=== PATIENT | male | born 1970 | race Caucasian/White ===

== ENCOUNTER → 2019-04-11 05:41 | Outpatient (CLI) | payer OTHER, SELFPAY ==
--- NOTE | 2019-04-11 | DI.MRI.S_ITS ---
PROCEDURE: MR KNEE RT WO CON INDICATIONS: Pain in unspecified knee TECHNIQUE: Noncontrast sagittal PD fast spin echo and T2 fast spin echo with fat saturation, sagittal 3-D FLASH with fat saturation; coronal T1 spin echo and PD fast spin echo with fat saturation, and axial PD fast spin echo with fat saturation through the knee. COMPARISON: None. FINDINGS: Image quality: Excellent. 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 Cruciate ligaments: The anterior and posterior cruciate ligaments appear intact. Medial structures: The medial collateral ligament appears intact. However there is a large amount of focal fluid collection seen deep to the superficial fibers and extending to the level of the pes anserinus tendons. This measures approximate 5.8 cm in cephalocaudad dimension and 1.5 x 4.1 cm on axial image 20 of series 5. Mild semimembranosus insertional tendinopathy and thickening. Visualized portions of the pes anserinus tendons appear intact. Lateral structures: The lateral collateral ligament, long and short heads of the biceps femoris tendon appear intact. The popliteus tendon appears normal; the popliteofibular ligament appears intact. The posterosuperior and anteroinferior popliteomeniscal fascicles appear intact. The arcuate and fabellofibular ligaments appear intact, on either side of the lateral inferior geniculate artery. Iliotibial band appears normal. Anterior structures: Quadriceps tendon intact. Lateral patellofemoral ligament appears intact. There is age-indeterminate thickening and intrasubstance signal changes involving the patellar attachment of the medial patellofemoral ligament There is mild patellar tendinopathy. Prepatellar and superficial infrapatellar subcutaneous edema/fluid. Deep infrapatellar bursal fluid also noted raising the possibility of bursitis Bones and cartilage: No focal marrow contusion or discrete low signal fracture line. Within the medial compartment, diffuse intrasubstance signal changes, surface fraying of the femoral and tibial cartilage without focal defect. Within the lateral compartment, diffuse intrasubstance signal changes in surface fraying of the central weightbearing femoral and tibial cartilage Within the patellofemoral compartment, surface fraying of the patellar and femoral trochlear cartilage diffusely. Joint space: Moderate joint effusion. Large Breen's cyst measuring approximately 5 cm in the cephalocaudad dimension. Possible small intraluminal debris measuring 3 mm on image 154 series 8. IMPRESSION: Large focal loculated cystic fluid collection along the medial aspect of the knee, doubtful for parameniscal cyst (especially in the absence of visualized meniscal tear), and raises the possibility of severe semimembranosus-tibial collateral ligament (SM-TCL) bursitis. This could also be extension of large Breen's cyst, or related to pes anserinus bursitis. Moderate joint effusion. Degenerative joint disease as above. Breen's cyst, with intraluminal debris. Sprain versus partial rupture of the patellar attachment of the medial patellofemoral ligament, technically age-indeterminate finding. Dictated by: Stiven Hackett M.D. on 04/11/2019 at 8:38 Approved by: Stiven Hackett M.D. on 04/11/2019 at 8:53
== END ==
PROVIDERS: Visit Provider Family Medicine
DX: M25.561 Pain in right knee (principal); M17.11 Unilateral primary osteoarthritis, right knee; M71.21 Synovial cyst of popliteal space [Baker], right knee; M25.461 Effusion, right knee
CPT/HCPCS: 73721

== ENCOUNTER → 2020-07-19 10:31 | Outpatient (CLI) | payer OTHER, SELFPAY ==
[2020-07-19 11:59] LABS: COVID19 -Nasal RAPID Negative (Negative)
== END ==
PROVIDERS: Visit Provider Specialist
DX: Z01.812 Encounter for preprocedural laboratory examination; Z20.822 Contact with and (suspected) exposure to COVID-19
CPT/HCPCS: 87635; C9803

== ENCOUNTER 2020-07-20 08:09 | Day surgery (SDC) | payer OTHER, SELFPAY ==
--- NOTE | 2020-07-20 | PATH_ITS ---
[facility] Accession Number: [id number] . 01 Material submitted: . colon - TRANSVERSE COLON POLYP 70 CM . 02 Diagnosis: Transverse Colon, Polyp 70 cm, Biopsy: Tubular adenoma. MRV 07/22/2020 1359 Local . 02 Electronically signed: . Leora Khalil MD, Pathologist NPI- [id number] . 01 Gross description: . TRANSVERSE COLON POLYP 70 CM: Received in formalin are 2 fragment(s) of mcclain, soft tissue measuring 0.2 x 0.2 x 0.2 cm to 0.4 x 0.3 x 0.2 cm submitted entirely in 1 cassette(s) /АННА 07/21/20202049 Local . 02 Pathologist provided ICD-10: D12.3 . 02 CPT . 333283 Performed at: 01 [facility] [address] [id number] MD Nicolas oGuld MD Phone: [phone] Performed at: 02 [facility] [address] [place], [place] [id number] MD Leora Khalil MD Phone: [phone]
[2020-07-20 08:32] VITALS: BP 132/85; PULSE 57; RESP 12; TEMP 36.4; O2SAT 98; BMI 33.3
[2020-07-20] MEDS: LACTATED RINGERS 1,000 ML 42 ML IV (09:03)
--- NOTE | 2020-07-20 09:54 | PM.HP.1 ---
History of Present Illness History of Present Illness Date Patient Seen: 07/20/20 Time Patient Seen: 09:51 Chief complaint: SDC Narrative: Patient is a gentleman here for his 1st colonoscopy. He has intermittent bleeding from hemorrhoids he says. Patient History Medical History Anxiety Depression YULISA (obstructive sleep apnea) PTSD (post-traumatic stress disorder) Family & Social History Social History: household members spouse Tobacco & Substance use: Smoking Status Never smoker alcohol intake current alcohol intake frequency a few times a month Substance Use Type marijuana Meds Home Medications and Allergies Allergies Allergy/AdvReac Type Severity Reaction Status Date / Time Influenza Virus Vaccines Allergy Severe Muscle Pain Verified 07/20/20 09:04 orphenadrine [From Norgesic] Allergy Intermediate Rash Verified 07/20/20 08:13 Review of Systems Review of Systems Narrative: PTSD related to loud noises principally. ROS: Yes All systems reviewed with the patient and are negative except as otherwise documented Exam Vital Signs (past 8 hours): - 07/20/20 08:32 Temperature 97.5 F L Pulse Rate 57 L Respiratory Rate 12 Blood Pressure 132/85 Pulse Oximetry 98 Oxygen Delivery Method Room Air Narrative Exam Narrative: Pleasant cooperative patient no apparent distress. Lungs are clear to auscultation. No rales or rhonchi. Heart regular rate and rhythm no murmur gallop. Abdomen is soft nontender without mass. No obvious hernias. Patient is alert and oriented x3. Assessment & Plan Assessment & Plan narrative: The patient for a screening colonoscopy. I have discussed the procedure with them. Risks of bleeding, perforation which would necessitate major operation, failure to find remove all lesions, the potential tattoo were all discussed. All questions were answered. They wished to proceed.
--- NOTE | 2020-07-20 09:55 | PM.PREOP ---
Pre-operative Note COVID-19 COVID-19 status: Negative Result date/Date tested (Pos, Neg/Pending): 07/19/20 Interval Note History & Physical reviewed/Exam performed by Physician: Yes Changes to H&P: No ASA Class (for procedural sedation): I
[2020-07-20] MEDS: fentaNYL 250 MCG/5 ML INJ IV (10:03)
[2020-07-20] MEDS: MIDAZOLAM 5 MG/5 ML VIAL IV (10:10)
--- NOTE | 2020-07-20 10:26 | PM.OP.ENDO ---
Operative Date/Time/Diagnoses Date of procedure: 07/20/20 Time of procedure: 10:26 Pre-op diagnosis: Screening exam. This is his 1st colonoscopy. Post-op diagnosis: same (One tiny polyp removed. Hemorrhoidal disease. Sigmoid diverticulosis.) Procedure & Clinicians Study performed: Colonoscopy with cold biopsy Same procedure as scheduled: Yes Indications: Screening Surgeon: Romeo Oliavrez Procedure Notes SCOAP/Timeout: Performed Procedure in detail: The patient was placed in the left lateral decubitus position and underwent IV sedation directed by the surgeon consisting of fentanyl and Versed. Digital exam was unremarkable except for mildly enlarged prostate.. The scope was inserted and advanced through the rectum into the sigmoid, descending, transverse, and ascending colon. Diverticulosis of the sigmoid colon was noted. Pressure was applied and we made our way into the cecum.. The cecum was reached identified by the ileocecal valve and the appendiceal opening. The ileocecal valve was successfully cannulated. The terminal ileum was normal in appearance. The scope was gradually brought out. One tiny Polyp was found at 70 cm from the anal verge. The scope ultimately was retroflexed in the rectum. The appearance was remarkable for small hemorrhoids without ulceration.. The scope was removed and the patient tolerated the procedure well. Prep was good. Scope withdrawal time: 7.5 minutes(9 total) Sedation minutes: 21 Findings: diverticulosis, internal hemorrhoids and polyp (One tiny polyp) Specimen(s): other (Polyp) Complications: none Post-procedure Recommendations: Colonscopy in 5 years (Unless this polyp is not adenomatous. In that case 10 years to be more appropriate.) and Start medication(s) (Consider using Metamucil daily) Follow up: as needed Disposition: PACU
[2020-07-20 10:29] VITALS: BP 107/70; PULSE 62; RESP 14; TEMP 36.2; O2SAT 98
[2020-07-20 10:33] VITALS: BP 120/59; PULSE 59; RESP 12; O2SAT 96
[2020-07-20 10:38] VITALS: BP 111/64; PULSE 63; RESP 14; O2SAT 98
[2020-07-20 10:42] VITALS: BP 112/67; PULSE 60; RESP 14; TEMP 36.6; O2SAT 97
[2020-07-20 10:56] VITALS: BP 116/73; PULSE 56; RESP 12; TEMP 36.6; O2SAT 97
== END 2020-07-20 11:10 | disposition home or self-care (01) ==
PROVIDERS: PCP Family Medicine; Referring Provider Specialist; Visit Provider Specialist
PROC: 0DJD8ZZ Inspection of Lower Intestinal Tract, Via Natural or Artificial Opening Endoscopic (ICD-10-PCS; CPT 45378; principal; 2020-07-20 09:15)
DX: Z12.11 Encounter for screening for malignant neoplasm of colon (principal); F43.10 Post-traumatic stress disorder, unspecified; G47.30 Sleep apnea, unspecified; F32.9 Major depressive disorder, single episode, unspecified; F41.9 Anxiety disorder, unspecified; K57.30 Diverticulosis of large intestine without perforation or abscess without bleeding; K64.8 Other hemorrhoids; D12.3 Benign neoplasm of transverse colon
CPT/HCPCS: 45380; 99152; J2250; J3010

== ENCOUNTER 2022-04-29 12:43 | Emergency (ER) | payer OTHER, SELFPAY ==
[2022-04-29 12:55] VITALS: BP 136/84; PULSE 65; RESP 22; TEMP 36.3; O2SAT 99; BMI 33.3
--- NOTE | 2022-04-29 14:26 | ED_ITS ---
HPI - Extremity Injury (Lower) <Jesse Dailey PA-C - Last Filed: 04/29/22 14:51> General Chief Complaint: Extremity Injury, Lower Stated Complaint: cyst behind knee cant sleep pain & aches Time Seen by Provider: 04/29/22 14:19 Source: patient Mode of arrival: Ambulatory History of Present Illness HPI Narrative: Patient is a 51-year-old male who presents to the emergency room today with complaint of pain behind his right knee. Patient admits to having a Breen's cyst that was diagnosed in 2019. History was diagnosed via MRI and that he receive physical therapy to help with the pain. States that the pain has returned and has been concerning for about 2 weeks. Patient on Sunday the pain was so severe to where his knee felt like it locked up and he could not bend his right knee. He said he went to the emergency room in [place] on where an x-ray was done to show that he had fluid behind the right knee and he was treated with Flexeril, placed in a knee immobilizer and advised to follow-up with his primary care provider for an ortho referral. States that the pain has worsened and he wanted something to help with pain until he can follow up with his provider on Sunday of next week. Related Data Previous Rx's Medication Instructions Recorded oxycodone-acetaminophen 5 mg-325 1 tab PO Q8H PRN pain #7 tabs 04/29/22 mg tablet (Percocet) Allergies Allergy/AdvReac Type Severity Reaction Status Date / Time Influenza Virus Vaccines Allergy Severe Muscle Pain Verified 07/20/20 09:04 orphenadrine [From Norgesic] Allergy Intermediate Rash Verified 07/20/20 08:13 cetirizine [From Zyrtec] AdvReac Agitated Verified 04/29/22 12:55 Review of Systems <Jesse Dailey PA-C - Last Filed: 04/29/22 14:51> Review of Systems Narrative: R.O.S.: General: No fever, chills or fatigue. Cardiovascular: No chest pain or palpitations Respiratory: No S.O.B. HEENT: No congestion, ear pain, rhinorrhea, sore throat or tinnitus Gastrointestinal: No nausea or vomiting : No urinary concerns Skin: No rash or associated abnormalities Musculoskeletal: Pain and cyst behind right knee? Neurological: Awake, alert and in not apparent distress. No Headaches, changes in vision or other related neurological concerns. Patient History <Jesse Dailey PA-C - Last Filed: 04/29/22 14:51> Medical History Anxiety Depression YULISA (obstructive sleep apnea) PTSD (post-traumatic stress disorder) Social History household members: spouse Smoking Status: Never smoker alcohol intake: current Smoking Status: Never smoker alcohol intake frequency: a few times a month Substance Use Type: marijuana Exam <Jesse Dailey PA-C - Last Filed: 04/29/22 14:51> Narrative Exam Narrative: Physical Exam: ? General: normal appearance, well developed, well nourished, alert, and awake. Not in acute distress. ? Head: Normocephalic, no lesions. Chest: Lungs CTAB, no rales, rhonchi or wheezes. ?? Heart: RRR, no murmurs, rubs or gallops. Eyes: PERRLA, EOM's full, conjunctivae clear. ? Neuro: Physiological, no localizing findings, CN3-12 intact. ?? Extremities: Right knee has intact deep tendon reflexes good range of motion on flexion and extension intact sensation to touch. Posterior knee area did not present with extensive swelling?or erythema. Skin: Normal, no rashes, no lesions noted. ?? PSYCHIATRIC: The mood is good, no blunted affect. Speech is clear. Thought process is linear, thought content is appropriate. The voice is without significant inflection. Gastrointestinal: Soft; NT; ND; Pos BS with Neg. rebound tenderness. No scars or major deformities noted on Visual Inspection. Initial Vital Signs Initial Vital Signs: Vital Signs Temperature 97.3 F L 04/29/22 12:55 Pulse Rate 65 04/29/22 12:55 Respiratory Rate 22 04/29/22 12:55 Blood Pressure 136/84 04/29/22 12:55 Pulse Oximetry 99 04/29/22 12:55 Oxygen Delivery Method 04/29/22 12:55 <Carrie Palomino DO - Last Filed: 04/30/22 11:10> Initial Vital Signs Initial Vital Signs: Vital Signs Temperature 97.3 F L 04/29/22 12:55 Pulse Rate 65 04/29/22 12:55 Respiratory Rate 22 04/29/22 12:55 Blood Pressure 136/84 04/29/22 12:55 Pulse Oximetry 99 04/29/22 12:55 Oxygen Delivery Method 04/29/22 12:55 Course <Jesse Dailey PA-C - Last Filed: 04/29/22 14:51> Vital Signs Vital signs: Vital Signs - 8 hr 04/29/22 12:55 Temperature 97.3 F L Pulse Rate 65 Respiratory Rate 22 Blood Pressure 136/84 Pulse Oximetry 99 Oxygen Delivery Method Room Air <Carrie Palomino DO - Last Filed: 04/30/22 11:10> Vital Signs Vital signs: Vital Signs - 8 hr 04/29/22 12:55 Temperature 97.3 F L Pulse Rate 65 Respiratory Rate 22 Blood Pressure 136/84 Pulse Oximetry 99 Oxygen Delivery Method Room Air MDM - Extremity Injury (Lower) <Jesse Dailey PA-C - Last Filed: 04/29/22 14:51> MDM Narrative Medical decision making narrative: Patient presents to the emergency room complaint of pain behind his right knee. Has diagnosed with a Breen's cyst in the past and has had physical therapy to help with this condition in the past. Was seen and x-rayed at a emergency room in [place] so no further imaging done at this visit. Patient's complaint is of pain until he can follow his primary care provider on Sunday this provider ordered pain medicine as needed until the patient follows up with his primary care provider patient also advised to return to the emergency room if any emergent concerns arise. Patient agrees with this plan. Discharge Plan Departure Patient Disposition: Home Clinical Impression: Breen's cyst of knee Instructions: DI for Breen Cyst Activity Restrictions/Additional Instructions: *You have been diagnosed with Breen's cyst right knee. I have written an order for some medications to help with your pain suggest continue to take nonsteroidal anti-inflammatories with the pain use medication and I ordered to help you sleep until you see your primary care provider on Sunday. Also please return to the emergency room if any emergent concerns arise. [ ] *What to do: *Please continue to take your regular medications as directed. [ ] New medication prescriptions sent to your pharmacy: [ ] [x] New medication written as a paper prescription [ ] No new medications given *Please follow up with your primary care provider in 2-3 days, call for an appointment. Let them know you were seen in the Emergency Department and that we ask that you be seen in follow up. We will electronically transmit a record of today's note if your PCP is in our system *If you do not have a primary care provider please contact the [facility] Resource line at [phone]. They will ask some questions about your medical history and help get you set up with a doctor in the community. *Return to Emergency Department if you should have any new, worsening or concerning symptoms, such as [fever greater than 101 F, shaking chills, worsening pain, persistent vomiting or other bothersome symptoms] Prescriptions: New oxycodone-acetaminophen [Percocet] 5-325 mg tablet 1 tab PO Q8H PRN (Reason: pain) Qty: 7 0RF Referrals: Brittany Fulton DO [Primary Care Provider] - Visit Report Forms: Patient Portal/API <Carrie Palomino DO - Last Filed: 04/30/22 11:10> Cosign ED Attending Mikaelature Attestation: I was immediately available in the department for consultation. Documentation has been reviewed.
--- NOTE | 2022-04-29 14:52 | PC.NURSE ---
pt seen at [facility] a few weeks ago for knee pain, was sent home with flexiril and states it is not helping, he was hoping to get a a different medication.
[2022-04-29 14:59] VITALS: BP 140/77
== END 2022-04-29 14:59 | disposition home or self-care (01) ==
PROVIDERS: Emergency Provider Physician Assistant; PCP Family Medicine
DX: M71.21 Synovial cyst of popliteal space [Baker], right knee (principal)
CPT/HCPCS: 99281

== ENCOUNTER → 2024-01-13 15:17 | Outpatient (CLI) | payer OTHER, SELFPAY ==
--- NOTE | 2024-01-13 15:20 | DI.MRI.S_ITS ---
PROCEDURE: MR KNEE RT WO CON INDICATIONS: PAIN,JOINT,KNEE,RIGHT TECHNIQUE: Noncontrast sagittal PD fast spin echo and T2 fast spin echo with fat saturation, sagittal 3-D FLASH with fat saturation; coronal T1 spin echo and PD fast spin echo with fat saturation, and axial PD fast spin echo with fat saturation through the knee. COMPARISON: [facility], MR, MR KNEE RT WO CON, 04/11/2019, 6:18. FINDINGS: Image quality: Excellent. Menisci: In the medial meniscus, there is full-thickness tear of the posterior root . There is additional horizontal longitudinal tear of the posterior horn extending into the meniscus body. There is marked extrusion of the medial meniscus body, new from prior exam. The lateral meniscus is unremarkable. Cruciate ligaments: The anterior and posterior cruciate ligaments appear intact. Medial structures: The MCL is intact. There is severe MCL bursitis, progressed from prior exam. Lateral structures: The biceps femoris tendon is intact. Prior sprain of the proximal fibular collateral ligament. The popliteal tendon is intact. The iliotibial band is intact. Anterior structures: The quadriceps and patellar tendons appear intact. Patellar alignment is normal. No femoral trochlear dysplasia or ventral trochlear prominence. No edema in the infrapatellar fat pad. Bones and cartilage: There is small area of high-grade chondral loss in the medial patellar facet with mild subchondral marrow edema. Additional mild chondral irregularity of the median ridge and the lateral patellar facet. Mild chondral irregularity of the lateral trochlea, and the central trochlea. In the medial compartment, there is complete chondral denudation in the weight-bearing portion of the femoral condyle and the tibial plateau, progressed from prior exam. There is mild subchondral marrow edema of the weight-bearing portion of the medial femoral condyle and mild subchondral cystic changes and marrow edema in the medial tibial plateau. In the lateral compartment, there is mild chondral irregularity of the weight-bearing portion of the femoral condyle. No acute fracture. Mild subchondral marrow edema in the tibial eminence, favor reactive. Joint space: Mild subcutaneous edema superficial to the patella tendon. Small knee effusion. Moderate sized popliteal cyst. Popliteal vasculature is unremarkable. No intra-articular body. IMPRESSION: 1. Extensive tear of the medial meniscus, progressed from prior exam. Marked extrusion of the medial meniscus body. 2. Severe MCL bursitis, progressed from prior exam. 3. Severe, medial compartment predominant chondrosis. 4. Moderate sized popliteal cyst. Dictated by: Shirley Fraser M.D. on 01/14/2024 at 19:33 Approved by: Shirley Fraser M.D. on 01/14/2024 at 19:45
== END ==
LOC: MRI 15:19
PROVIDERS: PCP Family Medicine; Referring Provider Orthopaedic Surgery; Visit Provider Orthopaedic Surgery
DX: S83.241A Other tear of medial meniscus, current injury, right knee, initial encounter (principal); M71.561 Other bursitis, not elsewhere classified, right knee; M94.261 Chondromalacia, right knee; M71.21 Synovial cyst of popliteal space [Baker], right knee; M25.561 Pain in right knee
CPT/HCPCS: 73721